=== PATIENT | female | born 1985 | race Caucasian/White ===

== ENCOUNTER 2016-10-30 20:52 | Emergency (ER) | payer SELFPAY ==
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
--- NOTE | 2016-11-02 09:40 | ED MED RECONCILIATION SUMMARY ---
Patient: ANAYA STARKS Medication Reconciliation Report [facility] VisitID: [id number] [address] [place] [address] 31y, F Registration Date/Time: 10/30/2016 Weight: 113.3 kg Height/Length: 68 in. BMI: 38.0 ALLERGIES: No Known Drug Allergy The patient's Home Medications are listed below: NONE. The source(s) of the original Home Medication information: patient The following Medications were given to the patient in the Emergency Department: None. The following Medications were prescribed to the patient: None.
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
--- NOTE | 2016-11-02 09:40 | ED MAR SUMMARY ---
..... Medication Administration Record [facility] [address] [place], [place] [id number] Patient: ANAYA STARKS Visit ID: [id number] 31y, F Weight: 113.3 kg Height/Length: 68 in BMI: 38 ALLERGIES: No Known Drug Allergy
--- NOTE | 2016-11-02 09:40 | ED MED RECONCILIATION SUMMARY ---
Patient: ANAYA STARKS Medication Reconciliation Report [facility] VisitID: [id number] [address] [place] [address] 31y, F Registration Date/Time: 10/30/2016 Weight: 113.3 kg Height/Length: 68 in. BMI: 38.0 ALLERGIES: No Known Drug Allergy The patient's Home Medications are listed below: NONE. The source(s) of the original Home Medication information: patient The following Medications were given to the patient in the Emergency Department: None. The following Medications were prescribed to the patient: None.
--- NOTE | 2016-11-02 09:40 | ED MAR SUMMARY ---
..... Medication Administration Record [facility] [address] [place], [place] [id number] Patient: ANAYA STARKS Visit ID: [id number] 31y, F Weight: 113.3 kg Height/Length: 68 in BMI: 38 ALLERGIES: No Known Drug Allergy
== END 2016-10-30 21:50 ==
LOC: ED SRH 20:52
DX: S09.90XA Unspecified injury of head, initial encounter (principal); Y04.0XXA Assault by unarmed brawl or fight, initial encounter; Y93.89 Activity, other specified; Y99.8 Other external cause status; Y92.009 Unspecified place in unspecified non-institutional (private) residence as the place of occurrence of the external cause; Z87.891 Personal history of nicotine dependence